=== PATIENT | male | born 2000 | race Caucasian/White ===

== ENCOUNTER 2022-05-20 19:10 | Emergency (ER) | payer OTHER ==
--- NOTE | 2022-05-20 20:44 | XRAY Report ---
PROCEDURE: Chest 1 View X-Ray INDICATIONS: chest pain TECHNIQUE: One view of the chest was acquired. COMPARISON: None. FINDINGS: Surgical changes and devices: None. Lungs and pleura: No pleural effusions or pneumothorax. Lungs are clear. Mediastinum: Mediastinal contours appear normal. Heart size is normal. Bones and chest wall: No suspicious bony lesions. Overlying soft tissues appear unremarkable. IMPRESSION: 1. No acute cardiopulmonary disease. Reviewed by: Osbaldo Lakhani MD on 05/20/2022 8:43 PM PDT Approved by: Osbaldo Lakhani MD on 05/20/2022 8:43 PM PDT Station ID: [id number]
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
[2022-05-20 21:46] VITALS: BP 139/89
== END 2022-05-20 21:51 | disposition home or self-care (01) ==
LOC: ED 19:10
DX: J20.9 Acute bronchitis, unspecified (principal)
CPT/HCPCS: 99282; 99283

== ENCOUNTER 2023-04-06 11:08 | Emergency (ER) | payer OTHER ==
--- NOTE | 2023-04-06 11:49 | XRAY Report ---
PROCEDURE: Chest 1 View X-Ray INDICATIONS: Chest Pain TECHNIQUE: One view of the chest was acquired. COMPARISON: None. FINDINGS: Surgical changes and devices: None. Lungs and pleura: No pleural effusions or pneumothorax. Submaximal inspiration. No gross infiltrates . Mediastinum: Mediastinal contours appear normal. Heart size is normal. Bones and chest wall: No suspicious bony lesions. Overlying soft tissues appear unremarkable. IMPRESSION: No acute cardiopulmonary process. Reviewed by: Joby Patel MD on 04/06/2023 11:47 AM PDT Approved by: Joby Patel MD on 04/06/2023 11:47 AM PDT Station ID: [id number]
[2023-04-06 11:51] VITALS: BP 103/71; O2SAT 99
[2023-04-06] MEDS ORDERED: ONDANSETRON 4 MG/2 ML VIAL IVP STA (11:59)
[2023-04-06] MEDS ORDERED: SODIUM CHLORIDE 0.9% 1,000 ML IV STA (11:59)
[2023-04-06] MEDS ORDERED: KETOROLAC 30 MG/ML VIAL IVP STA (11:59)
[2023-04-06 12:02] LABS: BASOPHILS % (AUTO) 0.4 %; EOSINOPHILS % (AUTO) 0.4 %; HCT - HEMATOCRIT 42.8 % (42.0-52.0); HGB - HEMOGLOBIN 13.8 g/dL (14.0-18.0); LYMPHOCYTES # (AUTO) 0.6 10^3/uL (1.5-3.5); LYMPHOCYTES % (AUTO) 8.5 %; MEAN CORPUSCULAR HEMOGLOBIN 27.7 pg (27.0-31.0); MEAN CORPUSCULAR HGB CONC 32.2 g/dL (32.0-36.0); MEAN CORPUSCULAR VOLUME 85.9 fL (80.0-94.0); MEAN PLATELET VOLUME 9.4 fL (7.4-11.4); MONOCYTES # (AUTO) 0.6 10^3/uL (0.0-1.0); MONOCYTES % (AUTO) 7.8 %; NEUTROPHILS # (AUTO) 6.1 10^3/uL (1.5-6.6); NEUTROPHILS % (AUTO) 82.8 %; PLT - PLATELET COUNT 325 10^3/uL (130-450); RED BLOOD COUNT 4.98 10^6/uL (4.70-6.10); RED CELL DISTRIBUTION WIDTH 12.8 % (12.0-15.0); WHITE BLOOD COUNT 7.4 x10^3/uL (4.8-10.8)
--- NOTE | 2023-04-06 12:02 | ED Physician Documentation ---
History of Present Illness - Stated complaint Stated Complaint: HEAD PX/RT EAR PX - Chief complaint Chief Complaint: Heent - Additonal information Additional information: 22-year-old transgender male currently on testosterone presents to the emergency department for evaluation of 48 hours headache, body aches, fevers, dizziness and pleuritic chest pain. Patient feels as though his right ear will not pop as though he has been on an airplane. He has been nauseated. No vomiting no diarrhea. No urinary symptoms. Patient is not on an estrogen jadyn. Currently on testosterone. Did have top surgery at the end of January. Denies lower extremity leg swelling Review of Systems Constitutional: reports: Fever, Myalgias, Fatigue Cardiac: reports: Chest pain / pressure. denies: Palpitations Respiratory: reports: Dyspnea. denies: Cough, Hemoptysis, Wheezing GI: reports: Reviewed and negative : reports: Reviewed and negative Skin: reports: Reviewed and negative Musculoskeletal: reports: Reviewed and negative PD PAST MEDICAL HISTORY - Past Medical History Past Medical History: No - Past Surgical History Past Surgical History: Yes - Present Medications Home Medications: Ambulatory Orders Medication Instructions Recorded Confirmed Azithromycin [Zithromax] 0 mg PO DAILY #6 tablet 05/20/22 Benzonatate [Tessalon] 200 mg PO TID PRN #20 cap 05/20/22 - Allergies Allergies/Adverse Reactions: Allergies Allergy/AdvReac Type Severity Reaction Status Date / Time adhesive Allergy Hives Verified 04/06/23 11:21 coconut Allergy Anaphylaxis Verified 05/20/22 19:26 strawberry Allergy Anaphylaxis Verified 05/20/22 19:25 - Social History Does the pt smoke?: No Smoking Status: Never smoker PD ED PE NORMAL - General General: Alert and oriented X 3, Well developed/nourished - HEENT HEENT: Atraumatic, Ears normal - Neck Neck: Supple, no meningeal sign, No adenopathy - Cardiac Cardiac: RRR, No murmur - Respiratory Respiratory: No respiratory distress, Clear bilaterally, Other (Diffuse pain with deep breathing) - Abdomen Abdomen: Normal bowel sounds, Soft, Non tender - Back Back: No CVA TTP - Derm Derm: Normal color, Warm and dry, No rash - Extremities Extremities: No deformity - Neuro Neuro: Alert and oriented X 3, net wpf developer 2-12 intact Eye Opening: Spontaneous Motor: Obeys Commands Verbal: Oriented GCS Score: 15 Results - Vitals Vitals: Vital Signs - 24 hr 04/06/23 04/06/23 11:17 11:31 Temperature 37.5 C Heart Rate 123 H 118 H Respiratory 20 19 Rate Blood Pressure 108/63 103/71 O2 Saturation 98 99 Oxygen O2 Source Room air - EKG (time done) 1126 EKG releavant findings:: EKG personally interpreted by author of this note. Relevant findings are: Rate: Rate (enter#) (112) Rhythm: Sinus tachycardia [place]: Normal Intervals: Normal MO. No: Prolonged QT QRS: Normal Ischemia: Normal ST segments Compare to prior EKG: Old EKG unavailable Computer interpretation: Agree with computer - Labs Labs: Laboratory Tests 04/06/23 04/06/23 04/06/23 11:46 11:53 11:53 WBC 7.4 RBC 4.98 Hgb 13.8 L Hct 42.8 MCV 85.9 MCH 27.7 MCHC 32.2 RDW 12.8 Plt Count 325 MPV 9.4 Neut # (Auto) 6.1 Lymph # (Auto) 0.6 L [place] # (Auto) 0.6 Eos # (Auto) 0.0 Baso # (Auto) 0.0 Absolute Nucleated RBC 0.00 Nucleated RBC % 0.0 D-Dimer Sodium 137 Potassium 3.8 Chloride 103 Carbon Dioxide 25 Anion Gap 9.0 BUN 10 Creatinine 1.2 Estimated GFR (MDRD) 74 L Glucose 102 H Calcium 9.2 Total Bilirubin 1.2 H AST 15 ALT 20 Alkaline Phosphatase 79 Troponin I High Sens < 2.3 L Total Protein 7.8 Albumin 4.6 Globulin 3.2 Albumin/Globulin Ratio 1.4 Lipase 31 Nasal Adenovirus (PCR) NOT DETECTED Nasal B. parapertussis DNA (PCR) NOT DETECTED Nasal Coronavir 229E PCR NOT DETECTED Nasal Coronavir HKU1 PCR NOT DETECTED Nasal Coronavir NL63 PCR NOT DETECTED Nasal Coronavir OC43 PCR NOT DETECTED Nasal Enterovir/Rhinovir PCR NOT DETECTED Nasal Influenza B PCR NOT DETECTED Nasal Influenza A PCR NOT DETECTED Nasal Parainfluen 1 PCR NOT DETECTED Nasal Parainfluen 2 PCR NOT DETECTED Nasal Parainfluen 3 PCR NOT DETECTED Nasal Parainfluen 4 PCR NOT DETECTED Nasal RSV (PCR) NOT DETECTED Nasal B.pertussis DNA PCR NOT DETECTED Nasal C.pneumoniae (PCR) NOT DETECTED Robert Human Metapneumo PCR NOT DETECTED Nasal M.pneumoniae (PCR) NOT DETECTED Nasal SARS-CoV-2 (PCR) DETECTED A 04/06/23 11:53 WBC RBC Hgb Hct MCV MCH MCHC RDW Plt Count MPV Neut # (Auto) Lymph # (Auto) [place] # (Auto) Eos # (Auto) Baso # (Auto) Absolute Nucleated RBC Nucleated RBC % D-Dimer 365.3 H Sodium Potassium Chloride Carbon Dioxide Anion Gap BUN Creatinine Estimated GFR (MDRD) Glucose Calcium Total Bilirubin AST ALT Alkaline Phosphatase Troponin I High Sens Total Protein Albumin Globulin Albumin/Globulin Ratio Lipase Nasal Adenovirus (PCR) Nasal B. parapertussis DNA (PCR) Nasal Coronavir 229E PCR Nasal Coronavir HKU1 PCR Nasal Coronavir NL63 PCR Nasal Coronavir OC43 PCR Nasal Enterovir/Rhinovir PCR Nasal Influenza B PCR Nasal Influenza A PCR Nasal Parainfluen 1 PCR Nasal Parainfluen 2 PCR Nasal Parainfluen 3 PCR Nasal Parainfluen 4 PCR Nasal RSV (PCR) Nasal B.pertussis DNA PCR Nasal C.pneumoniae (PCR) Robert Human Metapneumo PCR Nasal M.pneumoniae (PCR) Nasal SARS-CoV-2 (PCR) - Rads (name of study) cxr Relevant Findings:: Final report received (No acute cardiopulmonary process) PD Medical Decision Making - ED course Complexity details: reviewed results, re-evaluated patient, d/w patient ED course: 22-year-old male presents emergency department for evaluation of cough, fevers myalgias headache, light headedness, dizziness and body aches. Reports pleuritic chest pain. Patient is about 6 weeks postop from top surgery. Is on testosterone. Has unopposed estrogen. Clinically history and exam is most suspicious of a viral URI. A chest x-ray was without acute findings as interpreted by the radiologist. I did obtain CBC, electrolytes troponin which were all essentially negative. D- dimer is mildly elevated at 330 but the respiratory PCR was positive for COVID which likely explains the elevated D-dimer. I discussed the plan and findings with patient. He was started on Paxlovid. Given lack of hypoxia I have low suspicion for a PE given other findings that could cause similar symptoms. He is discharged home in stable condition with usual emergent return precautions discussed. Departure - Departure Disposition: 01 Home, Self Care Clinical Impression: COVID-19 Condition: Stable Record reviewed to determine appropriate education?: Yes Instructions: ED Viral Syndrome Comments: You have tested positive for COVID-19 today this is the cause of your cough, fevers headache dizziness body aches etc. We are giving a medication called Paxlovid which she will take for the next 5 days as per package instructions. You do need to maintain quarantine for 1 week. Tylenol and ibuprofen can be taken [id number] for discomfort. Please stay well-hydrated. I would expect that your symptoms are starting to feel better over the next 5 to 7 days. Return to the ER for any new or worsening symptoms. Forms: PCP List
[2023-04-06 12:13] LABS: ALBUMIN 4.6 g/dL (3.2-5.5); ALBUMIN/GLOBULIN RATIO 1.4 (1.0-2.2); ALKALINE PHOSPHATASE 79 IU/L (42-121); ALT ALANINE AMINOTRANSFERASE 20 IU/L (10-60); AST ASPARTATE AMINOTRANSFERASE 15 IU/L (10-42); BILIRUBIN,TOTAL 1.2 mg/dL (0.2-1.0); BUN - BLOOD UREA NITROGEN 10 mg/dL (6-20); CALCIUM 9.2 mg/dL (8.5-10.3); CARBON DIOXIDE - CO2 25 mmol/L (21-32); CHLORIDE 103 mmol/L (101-111); CREATININE 1.2 mg/dL (0.6-1.2); GFR - MDRD 74 (>89); GLUCOSE 102 mg/dL (70-100); LIPASE 31 U/L (22-51); POTASSIUM 3.8 mmol/L (3.5-5.0); SODIUM 137 mmol/L (135-145); TOTAL PROTEIN 7.8 g/dL (6.7-8.2)
[2023-04-06 12:19] LABS: TROPONIN I HIGH SENSITIVITY < 2.3 ng/L (2.3-19.7)
[2023-04-06 12:53] LABS: B. PARAPERTUSSIS- RESP PCR PAN NOT DETECTED; B. PERTUSSIS- RESP PCR PANEL NOT DETECTED; C. PNEUMONIAE- RESP PCR PANEL NOT DETECTED; CORONAVIRUS 229E-RESP PCR NOT DETECTED; CORONAVIRUS HKU1-RESP PCR NOT DETECTED; CORONAVIRUS NL63-RESP PCR NOT DETECTED; CORONAVIRUS OC43-RESP PCR NOT DETECTED; HUMAN METAPNEUMOVIRUS NOT DETECTED; INFLUENZA A- RESP PCR PANEL NOT DETECTED; INFLUENZA B - RESP PCR PANEL NOT DETECTED; M. PNEUMONIAE- RESP PCR PANEL NOT DETECTED; PARAINFLUENZA VIRUS 1 NOT DETECTED; PARAINFLUENZA VIRUS 2 NOT DETECTED; PARAINFLUENZA VIRUS 3 NOT DETECTED; PARAINFLUENZA VIRUS 4 NOT DETECTED; RHINOVIRUS/ENTEROVIRUS NOT DETECTED; RSV- RESP PCR PANEL NOT DETECTED
[2023-04-06 12:56] LABS: SARS-CoV-2 -RESP PCR PANEL DETECTED
[2023-04-06] MEDS ORDERED: NIRMATRELVIR/RITONAVIR PREPACK PO STA (12:59)
== END 2023-04-06 13:30 | disposition home or self-care (01) ==
LOC: ED 11:08
DX: U07.1 COVID-19 (principal)
CPT/HCPCS: 36415; 71045; 80053; 83690; 84484; 85025; 85379; 87633; 93005; 96374; 96375; 99284; J3490

== ENCOUNTER 2024-04-05 19:17 | Emergency (ER) | payer OTHER ==
[2024-04-05 19:31] VITALS: BP 137/85; O2SAT 99
--- NOTE | 2024-04-05 19:49 | ED Physician Documentation ---
PD HPI HEENT - Stated complaint Stated Complaint: THROAT PX - Chief complaint Chief Complaint: Heent - History obtained from History obtained from: Patient - History of Present Illness Timing - onset: How many days ago (4) Timing - duration: Days (4) Timing - details: Gradual onset, Still present Location: Right ear, Throat Improves: Medication Worsens: Swalllowing Associated symptoms: Congestion, Swollen nodes. No: Fever, Cough Similar symptoms before: Has not had sx before Recently seen: Not recently seen - Additional information Additional information: Previously well 23-year-old Kai Blackwell is a transgender male who presents to the emergency department today with a sore throat that has been present for 4 days. Symptoms have worsened he had to cut out of work early yesterday and he is not able to get an appointment to see his primary for 1 month. He has had a prior sinus infection about 2 months ago. Review of Systems Constitutional: denies: Fever Eyes: denies: Decreased vision Ears: reports: Ear pain Nose: reports: Congestion Throat: reports: Sore throat Cardiac: denies: Chest pain / pressure, Palpitations Respiratory: denies: Dyspnea, Cough GI: denies: Nausea, Vomiting, Constipation, Diarrhea : denies: Dysuria, Frequency PD PAST MEDICAL HISTORY - Past Medical History Past Medical History: Yes Psych: Depression, Anxiety - Past Surgical History Past Surgical History: Yes General: Cholecystectomy, Appendectomy - Present Medications Home Medications: Ambulatory Orders Medication Instructions Recorded Confirmed Azithromycin [Zithromax] 0 mg PO DAILY #6 tablet 05/20/22 Benzonatate [Tessalon] 200 mg PO TID PRN #20 cap 05/20/22 Amox/Clav 875/125 [Augmentin] 1 each PO Q12H #20 tablet 04/05/24 - Allergies Allergies/Adverse Reactions: Allergies Allergy/AdvReac Type Severity Reaction Status Date / Time adhesive Allergy Hives Verified 04/05/24 19:29 coconut Allergy Anaphylaxis Verified 04/05/24 19:29 strawberry Allergy Anaphylaxis Verified 04/05/24 19:29 - Social History Does the pt smoke?: No Smoking Status: Never smoker Does the pt drink ETOH?: No Does the pt have substance abuse?: No - Immunizations Immunizations are current?: No - POLST Patient has POLST: No PD ED PE NORMAL - Vitals Vital signs reviewed: Yes (Hypertensive) - General General: Alert and oriented X 3, No acute distress, Well developed/nourished, Other (23-year-old transgender male with a convincing appearance.) - HEENT HEENT: Atraumatic, PERRL, EOMI, Ears normal, Moist mucous membranes, Other (2+ cryptic and exudative tonsils worse on the right than the left inflammation more evident on the right.) - Neck Neck: Supple, no meningeal sign, No bony TTP, Other (Tender submandibular adenopathy to the right) - Cardiac Cardiac: RRR, No murmur - Respiratory Respiratory: No respiratory distress, Clear bilaterally - Abdomen Abdomen: Soft, Non tender - Back Back: No CVA TTP, No spinal TTP - Derm Derm: Normal color, Warm and dry, No rash - Extremities Extremities: No deformity, No edema - Neuro Neuro: Alert and oriented X 3, diorama model maker 2-12 intact, No motor deficit, No sensory deficit, Normal speech Eye Opening: Spontaneous Motor: Obeys Commands Verbal: Oriented GCS Score: 15 - Psych Psych: Normal mood, Normal affect Results - Vitals Vitals: Vital Signs - 24 hr 04/05/24 19:23 Temperature 36.5 C Heart Rate 100 Respiratory 16 Rate Blood Pressure 137/85 H O2 Saturation 99 Oxygen O2 Source Room air - Labs Labs: Laboratory Tests 04/05/24 19:27 Group A Strep Rapid Negative PD Medical Decision Making - ED course Complexity details: reviewed results, re-evaluated patient, considered differential, d/w patient Reviewed Lab Results: We checked a rapid strep which was negative and I interpreted this to indicate the patient does not have streptococcal pharyngitis. I have thus diagnosed him with tonsillitis with cryptic exudative tonsils. ED course: 23-year-old male presents to the emergency department with sore throat for 4 days has cryptic exudative tonsils and a negative rapid strep. He is administered a dose of dexamethasone 10 mg orally and we will place him on a short course of Augmentin. Departure - Departure Disposition: 01 Home, Self Care Clinical Impression: Tonsillitis Condition: Stable Instructions: ED Tonsillitis Follow-Up: DEMETRI HILTON MD [Primary Care Provider] - Prescriptions: Amox/Clav 875/125 [Augmentin] 1 each PO Q12H #20 tablet Comments: [place], today it looks like you have exudative tonsillitis and we are treating you with an antibiotic which should assist in making recovery more rapid. Today we gave you a dose of dexamethasone and if this keeps you awake tonight take some Benadryl to override that. Our expectation with treatment is improvement today and continued improvement. This condition frequently occurs from sleep deprivation. We have E scribed the Augmentin to the [facility] in [place]. Forms: PCP List
[2024-04-05] MEDS: CHERRY SYRUP 10 ML UDC PO ONE (20:03)
[2024-04-05] MEDS: DEXAMETHASONE 10 MG/ML VIAL PO STA (20:03)
[2024-04-05 20:05] LABS: RAPID STREP SCREEN Negative (Negative)
[2024-04-05] MEDS: AMOX/CLAV 875 MG/125 MG TABLET PO STA (20:23)
== END 2024-04-05 20:25 | disposition home or self-care (01) ==
LOC: ED 19:17
DX: J03.90 Acute tonsillitis, unspecified (principal)
CPT/HCPCS: 87070; 87430; 99283; 99284; A9270